=== PATIENT | female | born 1945 | race Caucasian/White ===

== ENCOUNTER 2018-05-22 11:52 | Emergency (ER) | payer MEDICARE, OTHER, SELFPAY ==
[2018-05-22 11:53] VITALS: BP 166/95; PULSE 85; RESP 16; TEMP 36.6; O2SAT 98; BMI 32.1
--- NOTE | 2018-05-22 12:20 | ED.VISSUMM ---
- ER Visit Summary Date of Service: 05/22/18 Chief Complaint: Abdominal pain History of Present Illness: The patient is a 73 F with a 3-week history of intermittent lower abdominal cramping and diarrhea. She denies fever. She has not been on antibiotics recently. She has no urinary symptoms. Patient states her last colonoscopy was 3 years ago and showed diverticulosis. Physical Examination: Vital signs significant for blood pressure 166/95. Patient sitting upright in bed no acute distress. Head and neck examination normal. Heart is regular rate and rhythm. Lung sounds clear. Abdomen is soft with mild lower abdominal tenderness. No guarding or rebound. Hyperactive bowel sounds are noted. Test Results: CBC and chemistry studies significant only for potassium of 3.4. LFTs normal. Urinalysis normal. CT abdomen pelvis with contrast shows no acute process. Diverticulosis is noted. Emergency Department Course and Treatment: Patient was given IV fluids here. Test results are discussed with patient and at bedside. Patient will be given Bentyl to help with spasm. She may take Imodium as needed for diarrhea. Treatment Plan: [] Disposition: Discharge Impression: Diarrhea with abdominal cramping This note was generated with [employer] dictation software. It may contain incorrect words, spelling, and punctuation that were not noted in review of the chart prior to signing ED Disposition - Plan for ED Patient: Referrals: Dell Mcmahon MD [Primary Care Provider] -
[2018-05-22] MEDS: 0.9% Normal Saline 1,000 ML 150 ML IV (12:56)
[2018-05-22 13:09] LABS: Mucous, Urine 0 SEEN /hpf (<or=2+); Red Blood Cells-Urine 0 SEEN /hpf (0-5); Squamous Epithelial Cells - UA 0 SEEN /hpf (5-10)
[2018-05-22 13:11] LABS: Absolute Lymphocyte Count 1.98 X10^3/ul (0.83-4.51); Absolute Neutrophil Count 5.1 X10^3/uL (2.0-7.7); Basophil# 0.01 X10^3/uL; Basophil% 0.1 % (0-1); Eosinophil# 0.14 X10^3/uL; Eosinophils% 1.8 % (0-5); Hemoglobin 13.7 g/dl (12.0-15.0); Lymphocyte # 1.98 X10^3/ul (4.0); Lymphocyte % 25.6 % (19-41); Mean Corp Hgb Conc 33.4 g/gl (32-36); Mean Corpuscular Hgb 31.2 pg (27.0-32.0); Mean Corpuscular Volume 93.4 fL (81-99); Monocyte# 0.48 X10^3/uL; Monocyte% 6.2 % (0-10); Neutrophil # 5.08 X10^3/uL (2.7-7.7); Neutrophil % 65.9 % (47-70); Platelet Count 262 K/mm3 (150-450); RBC Distribution Width CV 12.6 % (11.6-14.6); RBC Distribution Width SD 42.7 fl (35.1-43.9); Red Blood Count 4.39 M/mm3 (4.2-5.4); White Blood Count 7.7 K/mm3 (4.4-11.0)
[2018-05-22 13:13] LABS: POSITIVE COUNT NO; POSITIVE DIFFERENTIAL NO; POSITIVE MORPHOLOGY NO
[2018-05-22 13:24] LABS: Bacteria RARE /hpf (None Seen); Color, Urine Yellow (Yellow); Glucose, Dipstick Normal (Normal); Ketone-Dipstick Negative (Negative); Leukocyte Esterase-Dipstick 25 /ul (Negative); Nitrite-Dipstick Negative (Negative); Occult Blood-Urine Negative /ul (Negative); Protein-Dipstick Negative (Negative); Urine Bilirubin Dipstick Negative (Negative); Urine Clarity Clear (Clear); Urine Urobilinogen Normal (Normal); White Blood Cells 0-5 SEEN /hpf (0-5)
[2018-05-22 13:38] LABS: AST(SGOT) 26 U/L (15-37); Alanine Aminotransfer ALT/SGPT 33 U/L (13-56); Albumin, Serum 3.5 g/dL (3.2-5.0); Alkaline Phosphatase 98 U/L (45-117); Anion Gap 4 (5-15); BUN 17 mg/dL (7-18); Bilirubin, Direct 0.07 mg/dL (0.00-0.30); Calcium,Total 8.5 mg/dL (8.5-10.1); Chloride 105 mmol/L (98-107); Creatinine, Serum 0.85 mg/dL (0.55-1.02); EST Glomerular Filtration Rate 70 mL/min (>60); Est Glom Filt Rate - Afr Amer 85 mL/min (>60); Estimated Creatinine Clearance 54.62 ml/min; Globulin 3.6 g/dL (2.2-4.2); Glucose 107 mg/dL (74-106); Potassium 3.4 mmol/L (3.5-5.1); Protein, Total 7.1 g/dL (6.4-8.2); Sodium Level 138 mmol/L (136-145)
--- NOTE | 2018-05-22 14:30 | CT_ITS ---
STUDY: CT ABDOMEN AND PELVIS WITH CONTRAST REASON FOR EXAM: Female, 73 years old. Abdominal pain for 3 weeks RADIATION DOSAGE (If Supplied By Facility): CTDIvol = ( 16.57 ) mGy, DLP = ( 1296.18 ) mGycm TECHNIQUE: Transaxial images were obtained from the dome of the diaphragm to the symphysis pubis with oral contrast. 100ml IV/Oral Isovue 300 was administered. Sagittal and coronal images were reconstructed. Individualized dose optimization techniques were used for this CT. COMPARISON: None. FINDINGS: The visualized lung bases are unremarkable. The visualized portions of the heart are within normal limits. Subcentimeter low-density lesion of the right lobe likely represents a simple cyst. No solid hepatic masses are seen. Normal gallbladder and extrahepatic biliary system. Normal spleen. Normal pancreas. Normal bilateral adrenal glands. Normal right kidney. Normal left kidney. Normal visualized stomach. Normal small intestine. There are multiple colonic diverticula consistent with diverticulosis. The appendix is visualized and appears normal. There is diffuse atherosclerotic calcification of the abdominal aorta, without a demonstrated aneurysm. Normal inferior vena cava. Normal retroperitoneum. Normal urinary bladder. Normal abdominal wall. There are diffuse degenerative changes of the visualized lumbar spine. CT/Abdomen/Pelvis WITH Contrast IMPRESSION: 1. No acute inflammatory process or bowel obstruction. 2. Diverticulosis without evidence of diverticulitis. Electronically Signed: Saravanan Cox MD at 15:31 EDT , Service support ,
--- NOTE | 2018-05-22 15:43 | ED.DEP ---
ED Disposition - Plan for ED Patient: Disposition: Home or Assisted Living Instructions: ED Abdominal Pain Unkn Cause Prescriptions: Dicyclomine HCl [Bentyl] 20 mg PO TIDAC #20 capsule Referrals: Dell Mcmahon MD [Primary Care Provider] - 1 Week
[2018-05-22 16:10] VITALS: BP 141/75; PULSE 66; RESP 15; O2SAT 96
== END 2018-05-22 16:12 | disposition home or self-care (01) ==
PROVIDERS: Emergency Provider Emergency Medicine; Family Provider Family Medicine; PCP Family Medicine
DX: R10.30 Lower abdominal pain, unspecified (principal); R19.7 Diarrhea, unspecified; I10 Essential (primary) hypertension; L40.9 Psoriasis, unspecified
CPT/HCPCS: 74177; 80048; 80076; 81001; 85025; 96360; 96361; 99283; J7030; Q9967; A4216

== ENCOUNTER 2019-06-27 19:38 | Inpatient (IN) | payer MEDICARE, OTHER, SELFPAY ==
[2019-06-27 19:39] VITALS: BP 130/76; PULSE 129; RESP 18; TEMP 37.1; O2SAT 96; BMI 29.9
--- NOTE | 2019-06-27 19:51 | EKG12_ITS ---
Test Reason : DYSRYTHMIA Blood Pressure : / mmHG Vent. Rate : 114 BPM Atrial Rate : 114 BPM P-R Int : 160 ms QRS Dur : 094 ms QT Int : 328 ms P-R-T Axes : 023 -10 039 degrees QTc Int : 452 ms Sinus tachycardia Nonspecific ST and T wave abnormality Abnormal ECG Confirmed by MOLINA LUND ([id number]), editor department RENETTA KAMARA ([id number]) on 06/30/2019 3:07:33 PM Referred By: Peter Pedraza Confirmed By:MOLINA LUND
--- NOTE | 2019-06-27 19:51 | CT_ITS ---
STUDY: CT ABDOMEN AND PELVIS WITH CONTRAST REASON FOR EXAM: Female, 74 years old. UPPER ABD PAIN X FEW DAYS WITH FEVER, COUGH, N/V/D, CHILLS, TX FOR UTI CURRENTLY RADIATION DOSAGE (If Supplied By Facility): CTDIvol = ( 15.88 ) mGy, DLP = ( 1178.09 ) mGycm TECHNIQUE: Transaxial images were obtained from the dome of the diaphragm to the symphysis pubis without oral contrast. 100ML ISOVUE 370 was administered. Sagittal and coronal images were reconstructed. Individualized dose optimization techniques were used for this CT. COMPARISON: CT abdomen and pelvis 05/[birth year]/1989. FINDINGS: There are new trace bilateral pleural effusions. There are mild groundglass pulmonary opacities right middle lobe lingula and lower lobes. There is a new small pericardial effusion. There is stable 3 mm hypodensity likely cyst within the right lobe of liver. There is a small stable hiatal hernia. Normal gallbladder and extrahepatic biliary system. Normal spleen. Normal pancreas. Normal bilateral adrenal glands. Normal right kidney. Normal left kidney. Normal visualized stomach. Normal small intestine. There are scattered colonic diverticula. No CT evidence for acute diverticulitis. The appendix is visualized and appears normal. Normal abdominal aorta. Normal inferior vena cava. There are enlarging small subcentimeter periaortic lymph nodes. Normal urinary bladder. Normal abdominal wall. There are stable significant dystrophic changes at L2-L3. There is disc space narrowing, subchondral sclerosis and osteophyte formation. There is stable small posterior calcified disc protrusion at L5-S1. CT/Abdomen/Pelvis W IV Cont ONLY IMPRESSION: New trace bilateral pleural effusions, new mild groundglass pulmonary opacities, hypoventilatory changes versus infectious alveolitis, atypical viral pneumonia cannot be excluded New small pericardial effusion Stable 3 mm hypodensity right lobe liver too small to characterize likely cyst Small stable hiatal hernia Stable significant dystrophic changes L2-L3 Stable small posterior disc calcified protrusion at L5-S1 Colonic diverticulosis without diverticulitis Mild enlarging subcentimeter periaortic lymph nodes are likely reactive, cannot exclude pathologic adenopathy Electronically Signed: Min Andrade, at 21:57 EDT Tel , Service support ,
[2019-06-27 20:09] VITALS: BP 136/67; PULSE 119; RESP 29; O2SAT 95
[2019-06-27 20:19] LABS: Bacteria 0 SEEN /hpf (None Seen); Color, Urine Yellow (Yellow); Glucose, Dipstick Normal (Normal); Ketone-Dipstick 5 mg/dl (Negative); Leukocyte Esterase-Dipstick 100 /ul (Negative); Mucous, Urine 0 SEEN /hpf (<or=2+); Nitrite-Dipstick Negative (Negative); Occult Blood-Urine 25 /ul (Negative); Protein-Dipstick 30 mg/dl (Negative); Urine Bilirubin Dipstick Negative (Negative); Urine Clarity Sl. Cloudy (Clear); Urine Urobilinogen 1 mg/dl (Normal); Urine pH 6.5 (5.0 - 8.0)
[2019-06-27 20:22] LABS: Absolute Lymphocyte Count 0.21 X10^3/uL (0.83-4.51); Absolute Neutrophil Count 18.4 X10^3/uL (2.0-7.7); Basophil# 0.03 X10^3/uL; Basophil% 0.2 % (0-1); Differential Indicated SCAN CRITERIA MET; Eosinophil# 0.02 X10^3/uL; Eosinophils% 0.1 % (0-5); Hematocrit 42.1 % (37-47); Hemoglobin 14.1 g/dL (12.0-15.0); Lymphocyte # 0.21 X10^3/ul (4.0); Lymphocyte % 1.1 % (19-41); Mean Corp Hgb Conc 33.5 g/dL (32-36); Mean Corpuscular Hgb 30.8 pg (27.0-32.0); Mean Corpuscular Volume 91.9 fL (81-99); Mean Platelet Vol. 9.2 fl (6.2-12.0); Monocyte# 0.56 X10^3/uL; Monocyte% 2.9 % (0-10); NRBC Flagged by Analyzer 0 % (0-5); Neutrophil # 18.37 X10^3/uL (2.7-7.7); Neutrophil % 95.1 % (47-70); POSITIVE DIFFERENTIAL YES; Platelet Count 228 K/mm3 (150-450); RBC Distribution Width CV 12.6 % (11.6-14.6); RBC Distribution Width SD 42.6 fl (35.1-43.9); Red Blood Count 4.58 M/mm3 (4.2-5.4); White Blood Count 19.3 K/mm3 (4.4-11.0)
[2019-06-27] MEDS: Ondansetron 4 MG/2 ML Vial IV (20:28)
[2019-06-27] MEDS: 0.9% Normal Saline 1,000 ML 1000 ML IV (20:28)
[2019-06-27] MEDS: Morphine 2 MG/ML Syringe IV (20:28)
[2019-06-27 20:35] LABS: Red Blood Cells-Urine 0-5 SEEN /hpf (0-5); Squamous Epithelial Cells - UA 0-5 SEEN /hpf (5-10); White Blood Cells 10-25 SEEN /hpf (0-5)
[2019-06-27 20:36] LABS: Amorphous Sediment 1+ URATE
[2019-06-27 20:40] LABS: ALB/GLOB Ratio 0.9 RATIO (0.9-2.4); AST(SGOT) 63 U/L (15-37); Alanine Aminotransfer ALT/SGPT 87 U/L (13-56); Albumin, Serum 3.6 g/dL (3.2-5.0); Alkaline Phosphatase 134 U/L (45-117); Anion Gap 9 (5-15); BUN 14 mg/dL (7-18); BUN/Creat Ratio 12.5 RATIO (10-20); Calcium,Total 9.1 mg/dL (8.5-10.1); Chloride 99 mmol/L (98-107); Creatinine, Serum 1.12 mg/dL (0.55-1.02); EST Glomerular Filtration Rate 51 mL/min (>60); Est Glom Filt Rate - Afr Amer 61 mL/min (>60); Estimated Creatinine Clearance 40.86 ml/min; Glucose 214 mg/dL (74-106); Lipase 32 U/L (73-393); Potassium 3.1 mmol/L (3.5-5.1); Protein, Total 7.6 g/dL (6.4-8.2); Sodium Level 134 mmol/L (136-145)
[2019-06-27 20:46] LABS: Differential Comment SCANNED
[2019-06-27 20:49] VITALS: BP 122/71; PULSE 114; RESP 19; TEMP 37; O2SAT 94
[2019-06-27] MEDS: 0.9% Normal Saline 1,000 ML 999 ML IV (20:55)
--- NOTE | 2019-06-27 20:55 | RAD_ITS ---
STUDY: X-RAY CHEST REASON FOR EXAM: Female, 74 years old. NAUSEA VOMITING AND DIARRHEA X 1 WEEK, TECHNIQUE: Portable chest COMPARISON: None. FINDINGS: There are mild bilateral likely groundglass pulmonary infiltrates. There is no demonstrated pleural abnormality. Normal size heart. Normal mediastinum and michael. Normal visualized pulmonary arteries. Normal visualized aortic arch and descending thoracic aorta. Normal visualized thoracic spine. Normal visualized ribs, clavicles, and shoulders. There is no demonstrated abnormality of the visualized soft tissue structures of the upper abdomen. RAD/Chest 1 View (Portable) IMPRESSION: Bilateral likely groundglass pulmonary infiltrates, atypical viral pneumonia cannot be excluded. Electronically Signed: Min Andrade, at 21:30 EDT Tel , Service support ,
[2019-06-27 21:52] LABS: Lactic Acid 2.4 mmol/L (0.4-1.9)
[2019-06-27 22:00] VITALS: BP 120/85; PULSE 95; RESP 19; TEMP 37.3; O2SAT 99
--- NOTE | 2019-06-27 22:01 | ED.VISSUMM ---
- ER Visit Summary Date of Service: 06/27/19 Chief Complaint: Nausea, vomiting, diarrhea History of Present Illness: The patient is a 74 F with nausea, vomiting, diarrhea for the past 6 days. She is also having some right upper quadrant pain. She had a cough that started over the last few days with a low-grade fever. She has no known coronavirus exposure. History of hypertension and psoriasis. Non-smoker. She is currently being treated for a UTI. This is her last day of antibiotics. Physical Examination: Tachycardic. Afebrile and otherwise vitals unremarkable. Lungs clear. Heart regular. Skin unremarkable. Right upper quadrant tender to palpation. She has a blanching erythematous rash to her bilateral ankles. Neurovascularly intact. Calves soft and supple. Skin intact. Test Results: EKG showed sinus rhythm at a rate of [address] and T wave changes. Chest x-ray showed bilateral groundglass infiltrates. CT abdomen showed trace bilateral pleural effusions with small pericardial effusion, stable and chronic changes, and periaortic adenopathy. White count 19.3, lactate 2.4. Sodium 134, potassium 3.1, glucose 214, creatinine 1.12, alkaline phosphatase 134, ALT 87, AST 63, lipase normal. Urinalysis shows signs of infection. Urine and blood cultures are pending. Troponin is normal. COVID testing is pending. Emergency Department Course and Treatment: Patient was placed on a monitor. Had COVID precautions. She was treated with IV fluids, morphine, Zofran. Work-up as above is concerning for bilateral pneumonia, COVID suspected. She also has UTI and severe sepsis. She was treated with Levaquin and vancomycin. She has a penicillin allergy. She will need inpatient care and the hospitalist was contacted. Treatment Plan: As above Disposition: Admission Impression: Bilateral pneumonia UTI COVID suspected Severe sepsis This note was generated with [employer] dictation software. It may contain incorrect words, spelling, and punctuation that were not noted in review of the chart prior to signing ED Disposition - Plan for ED Patient: Referrals: Dell Mcmahon MD [Primary Care Provider] -
[2019-06-27] MEDS: levoFLOXacin IV 750 MG/150 ML BAG 100 MG IV (22:11)
--- NOTE | 2019-06-27 22:59 | PCM.HP.STD ---
Problem List (1) Fever and chills Status: Acute (2) Diarrhea Status: Acute Qualifiers: Diarrhea type: unspecified type Qualified Code(s): R19.7 - Diarrhea, unspecified (3) Abdominal cramping Status: Acute History of Present Illness Date of Admission: 06/27/19 Chief Complaint: Fever and chills, abdominal cramps, diarrhea The patient is a 74 year old F was seen in the emergency room at [facility] with a chief complaint of fever and chills, abdominal cramping, and diarrhea x24 hours. Patient is under treatment for a urinary tract infection and is on Macrodantin. Patient denies any cough, she denies any shortness of breath. Labs obtained in the emergency room showed an elevated white blood cell count of 19.3, lactic acid was elevated at 2.4, creatinine was 1.12, potassium was 3.1, and alkaline phosphatase is 134. Patient had 10-25 white blood cells in her urine, chest x-ray showed bilateral infiltrates suggestive of a viral pneumonia with groundglass appearance. Patient will be admitted to [facility] floor severe sepsis secondary to bilateral pneumonia, she had a coronavirus test performed in the emergency room that she would be a rule out. Patient was given vancomycin and Levaquin in the emergency room. Past Medical History Past Medical History (Chronic Problems): Chronic Problems (Last Updated 04/15/17 @ 12:[address] Theresa Kahn MD) Psoriasis (Chronic) failed clobetasol on vulva- ordered calcipotriene Medical History: Medical History (Last Updated 04/15/17 @ 12:[address] 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 Denies: Anorexia, Night Sweats, Weakness, Weight Change Eyes: Denies: Cataracts, Conjunctivae Inflammation, Double vision, Drainage HEENT: Denies: Difficulty Swallowing, Dysphasia, Ear Pain, Eye Pain, Hearing Changes, Nasal bleeding, Nasal Congestion, Post Nasal Drip Cardiovascular: Denies: Chest Pain, Claudication, Chest Pressure, Chest Tightness, Edema, Palpitations Respiratory: Denies: Cough, Hemoptysis, Pleuritic Pain, Shortness of Breath, Shortness of breath at rest, Shortness of breath upon exertion, Sputum production, Wheezing Gastrointestinal: Reports: Abdominal Pain, Diarrhea. Denies: Constipation, Hematemesis, Hematochezia, Nausea, Melena, Vomiting Genitourinary: Denies: Dysuria, Frequency, Hematuria, Hesitancy, Urgency Gynecological: Denies: Breast symptoms Musculoskeletal: Denies: Foot Pain, Hand Pain, Joint Pain, Joint stiffness, Joint swelling, Joint Tenderness, Leg Pain Skin: Denies: Dryness, Jaundice, Pruritis, Rash Neurological: Denies: Blurred vision, Double vision, Change in Speech, Slurred speech, Difficulty swallowing, Focal weakness, Headaches, Incoordination, Numbness, Tingling Psychiatric: Denies: Anxiety, Depression, Homicidal Ideations, Suicidal Ideations Endocrine: Denies: Change in Body Habitus, Heat/ Cold Intolerance, Polydipsia, Polyuria, Hx of Irradiation Hematologic/ Lymphatic: Denies: Adenopathy, Anemia, Easy Bruising, Easy Bleeding, Petechiae, Purpura VTE Information - Inpt Only VTE Present on Admission: No VTE Mechan Device Prophylaxis: None VTE Pharm Prophylaxis ordered?: Yes Patient Problems: Active and Suspected Problems (Last Updated 04/15/17 @ 12:[address] Theresa Kahn MD) Fever and chills (Acute) Diarrhea (Acute) Abdominal cramping (Acute) - Physical Exam Vitals/I&O's: Vital Signs Temp Pulse Resp BP Pulse Ox 99.1 F 95 19 H 120/85 H 99 06/27/19 22:00 06/27/19 22:00 06/27/19 22:00 06/27/19 22:00 06/27/19 22:00 Oxygen Delivery Method Room Air Weight: 81.647 kg Body Mass Index (BMI) 29.9 Intake and Output for Last 24 Hours 06/25/19 06/26/19 06/27/19 23:59 23:59 23:59 Intake Total 2216.45 / 2216.45 Balance 2216.45 / 2216.45 General: Alert, Oriented x3, Cooperative, No apparent distress, Well developed, Well nourished HEENT: Atraumatic, PERRLA, EOMI, Normocephalic Oral: Moist Mucosa Neck: Supple, No JVD, Negative Carotid Bruits, Trachea Midline, Thyroid Normal Size and Texture Lungs: Clear to auscultation, Normal air movement, No rhonchi, No wheeze, No rales Cardiovascular: Regular rate, Regular Rhythm, Normal S1, Normal S2, No murmurs, PMI Normal, No rub noted Abdomen: Bowel Sounds Present, Soft, Non Tender, Non-Distended Extremities: No clubbing, No cyanosis, No edema, Capillary Refill Less than 3 Seconds Skin: No rashes, No breakdown Musculoskeletal: No Tenderness to Palpation of Joints or Extremities Neurological: Cranial nerves II-XII grossly intact, Neuro grossly intact, Sensory exam intact to light touch and pain Psych/Mental Status: Normal Affect, Appropriate, Alert and oriented to time, place, person, mood and affect Laboratory Results 06/27/19 19:55: WBC 19.3 H, RBC 4.58, Hgb 14.1, Hct 42.1, MCV 91.9, MCH 30.8, MCHC 33.5, RDW Std Deviation 42.6, RDW Coeff of Tami 12.6, Plt Count 228, MPV 9.2, Immature Gran % (Auto) 0.600, Neut % (Auto) 95.1 H, Lymph % (Auto) 1.1 L, [place] % (Auto) 2.9, Eos % (Auto) 0.1, Baso % (Auto) 0.2, Absolute Neuts (auto) 18.4 H, Absolute Lymphs (auto) 0.21 L, Nucleated RBC % 0, Differential Comment SCANNED 06/27/19 19:55: Sodium 134 L, Potassium 3.1 L, Chloride 99, Carbon Dioxide 26.0, Anion Gap 9, BUN 14, Creatinine 1.12 H, Estim Creat Clear Calc 40.86, Est GFR (MDRD) Af Amer 61, Est GFR (MDRD) Non-Af 51 L, BUN/Creatinine Ratio 12.5, Glucose 214 H, Calcium 9.1, Total Bilirubin 0.60, AST 63 H, ALT 87 H, Alkaline Phosphatase 134 H, Troponin I < 0.015, Total Protein 7.6, Albumin 3.6, Globulin 4.0, Albumin/Globulin Ratio 0.9, Lipase 32 L 06/27/19 19:55: Lactic Acid 2.4 H* 06/27/19 20:00: Urine Color Yellow, Urine Clarity Sl. Cloudy, Urine pH 6.5, Ur Specific [place] 1.010, Urine Protein 30 H, Urine Glucose (UA) Normal, Urine Ketones 5 H, Urine Occult Blood 25 H, Urine Nitrite Negative, Urine Bilirubin Negative, Urine Urobilinogen 1 H, Ur Leukocyte Esterase 100 H, Urine RBC 0-5 SEEN, Urine WBC 10-25 SEEN, Ur Squamous Epith Cells 0-5 SEEN, Amorphous Sediment 1+ URATE, Urine Bacteria 0 SEEN, Urine Mucus 0 SEEN 06/27/19 21:25: COVID-19 (TREVOR) Pending Current Medications Levofloxacin (Levaquin Iv) 750 mg in 150 mls @ 100 mls/hr IV X1 ONE Stop: 06/27/19 23:18 Last Admin: 06/27/19 22:11 Dose: 100 mls/hr Documented by: Vancomycin HCl 1,250 mg/ (Sodium Chloride) 275 mls @ 167 mls/hr IV X1 ONE Stop: 06/28/19 00:08 Assessment/Plan All Active Problems (Last Updated 04/15/17 @ 12:[address] Theresa Kahn MD) Fever and chills (Acute) Diarrhea (Acute) Abdominal cramping (Acute) #1 severe sepsis secondary to bilateral pneumonia-etiology unclear, rule out coronavirus infection-patient will be admitted to [place] [id number] and [facility], she received vancomycin and Levaquin in the emergency room, I will maintain her on Levaquin on the floor, urine for Legionella and strep pneumoniae will be obtained, respiratory panel was ordered, coronavirus test was obtained in the emergency room. Blood cultures were obtained in the emergency room. #2 bilateral pneumonia-etiology unclear #3 hypokalemia-patient will be given oral potassium-she takes hydrochlorothiazide at home for blood pressure #4 pyuria-etiology unclear #5 abdominal cramping with diarrhea-etiology unclear, possible viral gastroenteritis or sequelae from coronavirus-enteric stool panel will be ordered #6 hypertension-patient is on hydrochlorothiazide Inpatient E&M: [id number] Init Hosp L3
[2019-06-27 23:00] VITALS: BP 127/71; PULSE 91; RESP 22; TEMP 37.3; O2SAT 96
[2019-06-27 23:06] VITALS: BP 127/71; PULSE 91; RESP 22; TEMP 37.3; O2SAT 96
[2019-06-27 23:42] VITALS: BMI 32.8
[2019-06-28 00:02] VITALS: BMI 32.9
[2019-06-28 00:19] VITALS: BP 132/74; PULSE 82; RESP 20; TEMP 37.2; O2SAT 97
[2019-06-28] MEDS: 0.9% Normal Saline 1,000 ML 100 ML IV ×2 (00:28→09:18)
[2019-06-28 00:53] VITALS: PULSE 82; RESP 20; O2SAT 97
[2019-06-28 01:03] LABS: Reflex Lactate? Y
[2019-06-28 01:54] LABS: Lactic Acid 1.6 mmol/L (0.4-1.9)
[2019-06-28 06:05] VITALS: BP 136/85; PULSE 76; RESP 18; TEMP 36.6; O2SAT 96
[2019-06-28] MEDS: Acetaminophen 325 MG Tablet 650 MG PO ×2 (06:20→21:24)
[2019-06-28 07:37] LABS: Absolute Lymphocyte Count 0.43 X10^3/uL (0.83-4.51); Absolute Neutrophil Count 10.2 X10^3/uL (2.0-7.7); Basophil# 0.02 X10^3/uL; Basophil% 0.2 % (0-1); Eosinophils% 2.6 % (0-5); Hematocrit 36.9 % (37-47); Lymphocyte # 0.43 X10^3/ul (4.0); Lymphocyte % 3.7 % (19-41); Mean Corp Hgb Conc 32.5 g/dL (32-36); Mean Corpuscular Hgb 30.6 pg (27.0-32.0); Mean Corpuscular Volume 94.1 fL (81-99); Mean Platelet Vol. 8.8 fl (6.2-12.0); Monocyte# 0.57 X10^3/uL; Monocyte% 4.9 % (0-10); NRBC Flagged by Analyzer 0 % (0-5); Neutrophil # 10.22 X10^3/uL (2.7-7.7); POSITIVE DIFFERENTIAL YES; Platelet Count 210 K/mm3 (150-450); RBC Distribution Width CV 12.8 % (11.6-14.6); Red Blood Count 3.92 M/mm3 (4.2-5.4); White Blood Count 11.6 K/mm3 (4.4-11.0)
[2019-06-28 08:00] LABS: Anion Gap 6 (5-15); BUN 10 mg/dL (7-18); BUN/Creat Ratio 11.9 RATIO (10-20); Calcium,Total 8.2 mg/dL (8.5-10.1); Chloride 106 mmol/L (98-107); Creatinine, Serum 0.84 mg/dL (0.55-1.02); EST Glomerular Filtration Rate 71 mL/min (>60); Est Glom Filt Rate - Afr Amer 86 mL/min (>60); Estimated Creatinine Clearance 52.28 ml/min; Glucose 112 mg/dL (74-106); Potassium 3.3 mmol/L (3.5-5.1); Sodium Level 138 mmol/L (136-145)
[2019-06-28 08:05] LABS: Differential Indicated SCAN CRITERIA MET
[2019-06-28 08:44] LABS: Differential Comment SCANNED
[2019-06-28 09:15] VITALS: BP 119/56; PULSE 71; RESP 17; TEMP 36.3; O2SAT 95
[2019-06-28] MEDS: Enoxaparin 40 MG/0.4 ML Syringe SC (09:18)
[2019-06-28] MEDS: hydroCHLOROthiazide 25 MG Tablet PO (09:18)
--- NOTE | 2019-06-28 12:21 | CHAPLAIN ---
Type of Pastoral Visit _x__ Initial Visit ___ Follow-up Visit ___ On-call Visit ___ General Patient Visit ___ Spiritual Assessment ___ Family Conference ___ Bereavement ___ Rapid Response ___ Code Blue ___ Other (describe below) Pastoral Care Referral From _x__ Patient ___ Family ___ Nurse ___ Physician ___ Negative Turner ___ Concrete Mixing Plant Superintendent ___ Other (describe below) Sacrament/Intervention _x__ Active listening ___ Anointing ___ Jainism ___ Bereavement ___ Communion ___ Olive exploration ___ ___ Life review ___ Prayer ___ Reconciliation ___ Sacrament of Sick ___ Supportive presence ___ Wedding ___ Other (describe below) Pastoral Comments phone call made to room of patient to offer support; pt answers the phone and states that she is starting to feel better; pt says that being from family at this time is probably harder on my ; pt will be doing Facetime with family later today; pt has a protestant connection and receivable manager is aware of her admission; no other needs at this time
--- NOTE | 2019-06-28 13:16 | CASEMGMT ---
RN CM Assessment Note Presentation: severe sepsis secondary to bilateral pneumonia. COVID-19 testing pending. Intro role of CM and purpose of RN CM assessment to patient via phone in room. Demographics, PCP and Pharmacy verified. Pt states she is independent, no care needs. Plans to return home on dc. PCP: Dr. Mcmahon Specialists: none Preferred Pharmacy: [facility] Pharmacy Insurance: [facility] Prescription Benefit: yes LNOK : Jamey Castelan Living Arrangements: Lives independently with her . No care needs per patient. Transportation: drives DME: none HHC: none Patient DC goals: DC PLAN: Home. RN CM advised to contact cm for any concerns/needs that may arise. RN CM will continue to follow and if COVID + will speak again with pt regarding needs at home for isolation.
--- NOTE | 2019-06-28 13:33 | PCM.PN.HOSP ---
Patient Problems: Active and Suspected Problems (Last Updated 04/15/17 @ 12:[address] Theresa Kahn MD) Fever and chills (Acute) Diarrhea (Acute) Abdominal cramping (Acute) Reason for Visit: Possible gastroenteritis secondary to antibiotic use Objective: Patient is admitted with nausea, vomiting, abdominal cramps and bilateral anterior, predominantly right lower chest pain. Denies shortness of breath or cough. Patient does not have history of smoking or chronic lung disease. Patient was taking nitrofurantoin for UTI. Does not have chronic inflammatory bowel disease or irritable bowel disease or GI disease. No GI bleed. No fever or chills. No hypoxia Diarrhea has resolved since she is admitted. Vitals/I&O's: Vital Signs Temp Pulse Resp BP Pulse Ox 97.3 F L 71 17 119/56 L 95 06/28/19 09:15 06/28/19 09:15 06/28/19 09:15 06/28/19 09:15 06/28/19 09:15 Oxygen Delivery Method Room Air Weight: 197 lb 5.019 oz Body Mass Index (BMI) 32.8 Intake and Output for Last 24 Hours 06/26/19 06/27/19 06/28/19 23:59 23:59 23:59 Intake Total 2650.00 / 2650.00 2118.33 / 2118.33 Output Total 1200 / 1200 Balance 2650.00 / 2650.00 918.33 / 918.33 General: Alert, Oriented x3, Cooperative HEENT: Atraumatic, PERRLA, EOMI, Normocephalic Neck: Supple, No JVD, Negative Carotid Bruits Lungs: Clear to auscultation, No rhonchi, No wheeze, No rales, Diminished Cardiovascular: Regular rate, Regular Rhythm, Normal S1, Normal S2, No murmurs Abdomen: Bowel Sounds Present, Soft, Non Tender - No tenderness over right upper quadrant along subcostal margin. Low suspicion for cholecystitis, Non-Distended, No Hepato-splenomegaly Extremities: No edema, Capillary Refill Less than 3 Seconds Skin: No rashes, No breakdown Musculoskeletal: No Tenderness to Palpation of Joints or Extremities, Arthritic Changes Neurological: Cranial nerves II-XII grossly intact Psych/Mental Status: Normal Affect, Appropriate Microbiology Past 72 Hours 06/27/19 23:54 Mucosa - Nasopharyngeal Respiratory Panel (PCR) - Final 06/27/19 23:30 Urine, Clean Catch Legionella Antigen - Final 06/27/19 23:30 Urine, Clean Catch Streptococcus pneumoniae Antigen (M - Final Laboratory Results 06/27/19 19:55: WBC 19.3 H, RBC 4.58, Hgb 14.1, Hct 42.1, MCV 91.9, MCH 30.8, MCHC 33.5, RDW Std Deviation 42.6, RDW Coeff of Tami 12.6, Plt Count 228, MPV 9.2, Immature Gran % (Auto) 0.600, Neut % (Auto) 95.1 H, Lymph % (Auto) 1.1 L, [place] % (Auto) 2.9, Eos % (Auto) 0.1, Baso % (Auto) 0.2, Absolute Neuts (auto) 18.4 H, Absolute Lymphs (auto) 0.21 L, Nucleated RBC % 0, Differential Comment SCANNED 06/27/19 19:55: Sodium 134 L, Potassium 3.1 L, Chloride 99, Carbon Dioxide 26.0, Anion Gap 9, BUN 14, Creatinine 1.12 H, Estim Creat Clear Calc 40.86, Est GFR (MDRD) Af Amer 61, Est GFR (MDRD) Non-Af 51 L, BUN/Creatinine Ratio 12.5, Glucose 214 H, Calcium 9.1, Total Bilirubin 0.60, AST 63 H, ALT 87 H, Alkaline Phosphatase 134 H, Troponin I < 0.015, Total Protein 7.6, Albumin 3.6, Globulin 4.0, Albumin/Globulin Ratio 0.9, Lipase 32 L 06/27/19 19:55: Lactic Acid 2.4 H* 06/27/19 20:00: Urine Color Yellow, Urine Clarity Sl. Cloudy, Urine pH 6.5, Ur Specific [place] 1.010, Urine Protein 30 H, Urine Glucose (UA) Normal, Urine Ketones 5 H, Urine Occult Blood 25 H, Urine Nitrite Negative, Urine Bilirubin Negative, Urine Urobilinogen 1 H, Ur Leukocyte Esterase 100 H, Urine RBC 0-5 SEEN, Urine WBC 10-25 SEEN, Ur Squamous Epith Cells 0-5 SEEN, Amorphous Sediment 1+ URATE, Urine Bacteria 0 SEEN, Urine Mucus 0 SEEN 06/27/19 21:25: COVID-19 (TREVOR) Pending 06/28/19 01:22: Lactic Acid 1.6 06/28/19 07:20: WBC 11.6 H, RBC 3.92 L, Hgb 12.0, Hct 36.9 L, MCV 94.1, MCH 30.6, MCHC 32.5, RDW Std Deviation 44.0 H, RDW Coeff of Tami 12.8, Plt Count 210, MPV 8.8, Immature Gran % (Auto) 0.600, Neut % (Auto) 88.0 H, Lymph % (Auto) 3.7 L, [place] % (Auto) 4.9, Eos % (Auto) 2.6, Baso % (Auto) 0.2, Absolute Neuts (auto) 10.2 H, Absolute Lymphs (auto) 0.43 L, Nucleated RBC % 0, Differential Comment SCANNED 06/28/19 07:20: Sodium 138, Potassium 3.3 L, Chloride 106, Carbon Dioxide 26.0, Anion Gap 6, BUN 10, Creatinine 0.84, Estim Creat Clear Calc 52.28, Est GFR (MDRD) Af Amer 86, Est GFR (MDRD) Non-Af 71, BUN/Creatinine Ratio 11.9, Glucose 112 H, Calcium 8.2 L Current Medications Acetaminophen (Tylenol) 650 mg PO Q6H PRN PRN PRN Reason: Pain Score 1-10/10 Last Admin: 06/28/19 06:20 Dose: 650 mg Documented by: Enoxaparin Sodium (Lovenox) 40 mg SC DAILY [facility] Last Admin: 06/28/19 09:18 Dose: 40 mg Documented by: Hydrochlorothiazide (Hctz) 25 mg PO QAM [facility] Last Admin: 06/28/19 09:18 Dose: 25 mg Documented by: Levofloxacin (Levaquin Iv) 750 mg in 150 mls @ 100 mls/hr IV Q48@2200 [facility] Sodium Chloride () 1,000 mls @ 100 mls/hr IV .Q10H [facility] Last Admin: 06/28/19 09:18 Dose: 100 mls/hr Documented by: Sodium Chloride () 250 mls @ 15 mls/hr IV .[id number] PRN PRN Reason: Saline Flush Sodium Chloride () 250 mls @ 15 mls/hr IV .[id number] PRN PRN Reason: Additional IVPB Infusion Morphine Sulfate () 2 mg IV Q3H PRN PRN PRN Reason: Pain Score 6-10/10 Ondansetron HCl (Zofran) 4 mg IV Q8H PRN PRN PRN Reason: NAUSEA/VOMITING Sodium Chloride () 10 - 40 ml IV UD PRN PRN Reason: SALINE FLUSH Medical Necessity - Tobacco Use Smoking Status: Never smoker Tobacco Use: Non-smoker Assessment/Plan All Active Problems (Last Updated 04/15/17 @ 12:[address] Theresa Kahn MD) Fever and chills (Acute) Diarrhea (Acute) Abdominal cramping (Acute) This 74-year-old female was admitted through ER for fever and chills, abdominal cramping/pain and diarrhea for 24 hours. She denied cough or shortness of breath. She is on Macrodantin for UTI. #1 severe sepsis secondary to bilateral pneumonia-etiology unclear, rule out coronavirus infection-patient will be admitted to [place] [id number] and isolation, she received vancomycin and Levaquin in the emergency room. Chest x-ray independently reviewed and shows bilateral lower lobes groundglass infiltrates. Respiratory panel is negative. Urinary antigens are negative. Blood cultures x2 are pending. Continue Levaquin. D-dimer elevated and therefore started therapeutic dose of Lovenox. Ferritin, CRP and LDH are also elevated. Discussed with ID. #2 GI symptoms probably antibiotic associated diarrhea or atypical manifestation of COVID-19: Stool for C. difficile, lactoferrin and occult blood ordered. Patient did not had bowel movement since admission. Predominantly right lower chest pain probably secondary to pneumonia: Clinically does not seem acute cholecystitis. Mildly elevated transaminases. Monitor LFT. #3 hypokalemia-K3.3, potassium replaced. #4 Possible cystitis/pyuria:-LE 100. WBC 10-25. Urine culture negative. #6 hypertension-patient is on hydrochlorothiazide DVT prophylaxis on therapeutic dose of Lovenox for elevated d-dimer. Clinical Impression(s) from Imaging Studies Abdomen/Pelvis CT 06/27/19 19:51 IMPRESSION: New trace bilateral pleural effusions, new mild groundglass pulmonary opacities, hypoventilatory changes versus infectious alveolitis, atypical viral pneumonia cannot be excluded New small pericardial effusion Stable 3 mm hypodensity right lobe liver too small to characterize likely cyst Small stable hiatal hernia Stable significant dystrophic changes L2-L3 Stable small posterior disc calcified protrusion at L5-S1 Colonic diverticulosis without diverticulitis Mild enlarging subcentimeter periaortic lymph nodes are likely reactive, cannot exclude pathologic adenopathy Chest X-Ray 06/27/19 20:55 IMPRESSION: Bilateral likely groundglass pulmonary infiltrates, atypical viral pneumonia cannot be excluded. Microbiology Past 72 Hours 06/27/19 23:54 Mucosa - Nasopharyngeal Respiratory Panel (PCR) - Final 06/27/19 23:30 Urine, Clean Catch Legionella Antigen - Final 06/27/19 23:30 Urine, Clean Catch Streptococcus pneumoniae Antigen (M - Final Laboratory Results 06/27/19 19:55: WBC 19.3 H, RBC 4.58, Hgb 14.1, Hct 42.1, MCV 91.9, MCH 30.8, MCHC 33.5, RDW Std Deviation 42.6, RDW Coeff of Tami 12.6, Plt Count 228, MPV 9.2, Immature Gran % (Auto) 0.600, Neut % (Auto) 95.1 H, Lymph % (Auto) 1.1 L, [place] % (Auto) 2.9, Eos % (Auto) 0.1, Baso % (Auto) 0.2, Absolute Neuts (auto) 18.4 H, Absolute Lymphs (auto) 0.21 L, Nucleated RBC % 0, Differential Comment SCANNED 06/27/19 19:55: Sodium 134 L, Potassium 3.1 L, Chloride 99, Carbon Dioxide 26.0, Anion Gap 9, BUN 14, Creatinine 1.12 H, Estim Creat Clear Calc 40.86, Est GFR (MDRD) Af Amer 61, Est GFR (MDRD) Non-Af 51 L, BUN/Creatinine Ratio 12.5, Glucose 214 H, Calcium 9.1, Total Bilirubin 0.60, AST 63 H, ALT 87 H, Alkaline Phosphatase 134 H, Troponin I < 0.015, Total Protein 7.6, Albumin 3.6, Globulin 4.0, Albumin/Globulin Ratio 0.9, Lipase 32 L 06/27/19 19:55: Lactic Acid 2.4 H* 06/27/19 20:00: Urine Color Yellow, Urine Clarity Sl. Cloudy, Urine pH 6.5, Ur Specific [place] 1.010, Urine Protein 30 H, Urine Glucose (UA) Normal, Urine Ketones 5 H, Urine Occult Blood 25 H, Urine Nitrite Negative, Urine Bilirubin Negative, Urine Urobilinogen 1 H, Ur Leukocyte Esterase 100 H, Urine RBC 0-5 SEEN, Urine WBC 10-25 SEEN, Ur Squamous Epith Cells 0-5 SEEN, Amorphous Sediment 1+ URATE, Urine Bacteria 0 SEEN, Urine Mucus 0 SEEN 06/27/19 21:25: COVID-19 (TREVOR) Pending 06/28/19 01:22: Lactic Acid 1.6 06/28/19 07:20: WBC 11.6 H, RBC 3.92 L, Hgb 12.0, Hct 36.9 L, MCV 94.1, MCH 30.6, MCHC 32.5, RDW Std Deviation 44.0 H, RDW Coeff of Tami 12.8, Plt Count 210, MPV 8.8, Immature Gran % (Auto) 0.600, Neut % (Auto) 88.0 H, Lymph % (Auto) 3.7 L, [place] % (Auto) 4.9, Eos % (Auto) 2.6, Baso % (Auto) 0.2, Absolute Neuts (auto) 10.2 H, Absolute Lymphs (auto) 0.43 L, Nucleated RBC % 0, Differential Comment SCANNED 06/28/19 07:20: Sodium 138, Potassium 3.3 L, Chloride 106, Carbon Dioxide 26.0, Anion Gap 6, BUN 10, Creatinine 0.84, Estim Creat Clear Calc 52.28, Est GFR (MDRD) Af Amer 86, Est GFR (MDRD) Non-Af 71, BUN/Creatinine Ratio 11.9, Glucose 112 H, Calcium 8.2 L Inpatient E&M: [id number] Subs Hosp L2
[2019-06-28 14:25] LABS: D-Dimer Quantitative (DVT/PE) 1.95 FEU/ug/m (0.27-0.49)
[2019-06-28 14:34] LABS: Ferritin 440 ng/mL (8-252); LDH 342 U/L (84-246); Magnesium 1.8 mg/dL (1.6-2.6)
[2019-06-28 15:10] VITALS: BP 135/64; PULSE 64; RESP 18; TEMP 36.4; O2SAT 95
[2019-06-28] MEDS: Enoxaparin 60 MG/0.6 ML Syringe 50 MG SC (15:13)
[2019-06-28 21:08] VITALS: BP 143/81; PULSE 65; RESP 16; TEMP 37.3; O2SAT 97
[2019-06-28] MEDS: Enoxaparin 100 MG/ML Syringe 90 MG SC (21:24)
[2019-06-29 03:08] VITALS: BP 136/71; PULSE 75; RESP 18; TEMP 36.6; O2SAT 96
[2019-06-29 06:46] LABS: Absolute Lymphocyte Count 1.36 X10^3/uL (0.83-4.51); Absolute Neutrophil Count 3.4 X10^3/uL (2.0-7.7); Basophil# 0.02 X10^3/uL; Basophil% 0.3 % (0-1); Eosinophil# 0.42 X10^3/uL; Eosinophils% 7.3 % (0-5); Hematocrit 38.9 % (37-47); Hemoglobin 12.6 g/dL (12.0-15.0); Lymphocyte # 1.36 X10^3/ul (4.0); Lymphocyte % 23.7 % (19-41); Mean Corp Hgb Conc 32.4 g/dL (32-36); Mean Corpuscular Hgb 30.4 pg (27.0-32.0); Mean Corpuscular Volume 93.7 fL (81-99); Monocyte# 0.47 X10^3/uL; Monocyte% 8.2 % (0-10); NRBC Flagged by Analyzer 0 % (0-5); Neutrophil # 3.44 X10^3/uL (2.7-7.7); Platelet Count 205 K/mm3 (150-450); RBC Distribution Width CV 12.9 % (11.6-14.6); RBC Distribution Width SD 44.3 fl (35.1-43.9); Red Blood Count 4.15 M/mm3 (4.2-5.4); White Blood Count 5.7 K/mm3 (4.4-11.0)
[2019-06-29 06:58] LABS: ALB/GLOB Ratio 0.8 RATIO (0.9-2.4); AST(SGOT) 110 U/L (15-37); Alanine Aminotransfer ALT/SGPT 200 U/L (13-56); Albumin, Serum 3.1 g/dL (3.2-5.0); Alkaline Phosphatase 157 U/L (45-117); Anion Gap 6 (5-15); BUN 11 mg/dL (7-18); BUN/Creat Ratio 12.1 RATIO (10-20); Calcium,Total 9.3 mg/dL (8.5-10.1); Chloride 105 mmol/L (98-107); Creatinine, Serum 0.91 mg/dL (0.55-1.02); EST Glomerular Filtration Rate 64 mL/min (>60); Est Glom Filt Rate - Afr Amer 78 mL/min (>60); Estimated Creatinine Clearance 48.25 ml/min; Globulin 4.1 g/dL (2.2-4.2); Glucose 102 mg/dL (74-106); Potassium 3.9 mmol/L (3.5-5.1); Protein, Total 7.2 g/dL (6.4-8.2); Sodium Level 139 mmol/L (136-145)
[2019-06-29 08:05] VITALS: BP 156/79; PULSE 64; RESP 17; TEMP 36.3; O2SAT 96
[2019-06-29] MEDS: hydroCHLOROthiazide 25 MG Tablet PO (08:07)
[2019-06-29] MEDS: Enoxaparin 100 MG/ML Syringe 90 MG SC (08:08)
[2019-06-29] MEDS: 0.9% Saline Lock 10 ML Syringe IV (08:10)
--- NOTE | 2019-06-29 10:21 | RAD_ITS ---
STUDY: X-RAY CHEST REASON FOR EXAM: Female, 74 years old. B/L INFILTRATES TECHNIQUE: Single AP portable view of the chest. COMPARISON: Comparison is made with prior study of June 27, 2019. FINDINGS: Since prior study, there has been improved aeration of both lungs. Minimal changes persist at the left lung base with blunting of the left costophrenic angle. There is moderate cardiac enlargement. Normal mediastinum and michael. Normal visualized pulmonary arteries. There is atherosclerotic tortuosity of the aortic arch and descending thoracic aorta. There are diffuse degenerative changes of the visualized thoracic spine. Normal visualized ribs, clavicles, and shoulders. There is no demonstrated abnormality of the visualized soft tissue structures of the upper abdomen. RAD/Chest 1 View (Portable) IMPRESSION: Improved aeration of both lungs. Minimal residual changes persist at the left lung base. Electronically Signed: Alessio Ariza, at 12:42 EDT , Service support ,
--- NOTE | 2019-06-29 10:57 | PCM.DC ---
- Discharge Diagnoses Current Active Problems: Current Active and Chronic Problems (Last Updated 04/15/17 @ 12:[address] Theresa Kahn MD) Fever and chills (Acute) Diarrhea (Acute) Abdominal cramping (Acute) You will use the following diet at home:: Regular Your food should be the consistency of: Regular Discharge Activity: Return to Normal Activity Call your doctor if you observe: Fever of 101 or Higher, Numbness or Tingling, Inability to urinate, Inability to have a bowel movement, Using more than one pad per hour, Shortness of breath, Dizziness, Fainting spells, Chest pain, Prolonged hiccoughing, Increased palpitations (irregular heartbeat), Calf discomfort, Uncontrolled pain Allergies/Adverse Reactions: Allergies amoxicillin Allergy (Mild, Verified 06/27/19 19:39) Hives Medications to take at Discharge hydrochlorothiazide 25 mg tablet 25 mg PO QAM 04/15/17 Aspirin, Baby 81 mg PO QHS 06/27/19 Vitamin D3 25 mg PO DAILY 06/27/19 Ciprofloxacin [Cipro] 500 mg PO BID #6 tab 06/29/19 The following prescriptions were given: Ciprofloxacin [Cipro] 500 mg PO BID #6 tab Transmission Status: Pending to [facility]/pharmacy #[id number] Primary Care Physician: Dell Mcmahon MD [Primary Care Provider] - Please follow up with your Primary Care Physician in: in 2 weeks Test Results: Test results from this visit will be discussed in further detail at your follow-up appointment, if applicable.
--- NOTE | 2019-06-29 10:58 | DS.PCM_ITS ---
Discharge Date and Diagnosis Date of Admission: 06/27/19 Date of Discharge: 06/29/19 - Primary Discharge Diagnosis Active and Suspected Problems (Last Updated 04/15/17 @ 12:[address] Theresa Kahn MD) Fever and chills (Acute) Diarrhea (Acute) Abdominal cramping (Acute) - Secondary Discharge Diagnosis Chronic Problems (Last Updated 04/15/17 @ 12:[address] Theresa Kahn MD) Psoriasis (Chronic) failed clobetasol on vulva- ordered calcipotriene Hospital Course and Treatment Imaging Results: 06/29/19 10:21 Chest 1 View (Portable) [RAD] Urgent Summary of Care Provided: The patient is a 74 year old F [] - Physical Exam Vitals/I&O's: Vital Signs Temp Pulse Resp BP Pulse Ox 97.4 F L 64 17 156/79 H 96 06/29/19 08:05 06/29/19 08:05 06/29/19 08:05 06/29/19 08:05 06/29/19 08:05 Oxygen Delivery Method Room Air Weight: 197 lb 5.019 oz Body Mass Index (BMI) 32.8 Intake and Output for Last 24 Hours 06/27/19 06/28/19 06/29/19 23:59 23:59 23:59 Intake Total 2650.00 / 2650.00 3996.66 / 3996.66 Output Total 1200 / 1200 Balance 2650.00 / 2650.00 2796.66 / 2796.66 Microbiology Past 72 Hours 06/27/19 20:55 Urine, Clean Catch Urine Culture - Final Mixed Gram Pos & Gram Neg Org 06/27/19 23:54 Mucosa - Nasopharyngeal Respiratory Panel (PCR) - Final 06/27/19 23:30 Urine, Clean Catch Legionella Antigen - Final 06/27/19 23:30 Urine, Clean Catch Streptococcus pneumoniae Antigen (M - Final Laboratory Results 06/27/19 21:25: COVID-19 (TREVOR) Not Detected 06/28/19 07:20: Magnesium 1.8, Ferritin 440 H, Lactate Dehydrogenase 342 H, C- React Prot Ext Range 115.00 H 06/28/19 07:20: D-Dimer Quant (PE/DVT) 1.95 H* 06/28/19 14:25: Procalcitonin 2.10 H 06/29/19 06:32: WBC 5.7, RBC 4.15 L, Hgb 12.6, Hct 38.9, MCV 93.7, MCH 30.4, MCHC 32.4, RDW Std Deviation 44.3 H, RDW Coeff of Tami 12.9, Plt Count 205, MPV 9.0, Immature Gran % (Auto) 0.500, Neut % (Auto) 60.0, Lymph % (Auto) 23.7, [place] % (Auto) 8.2, Eos % (Auto) 7.3 H, Baso % (Auto) 0.3, Absolute Neuts (auto) 3.4, Absolute Lymphs (auto) 1.36, Nucleated RBC % 0 06/29/19 06:32: Sodium 139, Potassium 3.9, Chloride 105, Carbon Dioxide 28.0, Anion Gap 6, BUN 11, Creatinine 0.91, Estim Creat Clear Calc 48.25, Est GFR (MDRD) Af Amer 78, Est GFR (MDRD) Non-Af 64, BUN/Creatinine Ratio 12.1, Glucose 102, Calcium 9.3, Magnesium 2.0, Total Bilirubin 0.40, AST 110 H, ALT 200 H, Alkaline Phosphatase 157 H, Total Protein 7.2, Albumin 3.1 L, Globulin 4.1, Albumin/Globulin Ratio 0.8 L Current Medications Acetaminophen (Tylenol) 650 mg PO Q6H PRN PRN PRN Reason: Pain Score 1-10/10 Last Admin: 06/28/19 21:24 Dose: 650 mg Documented by: Enoxaparin Sodium (Lovenox) 90 mg SC BID [facility] Last Admin: 06/29/19 08:08 Dose: 90 mg Documented by: Hydrochlorothiazide (Hctz) 25 mg PO QAM [facility] Last Admin: 06/29/19 08:07 Dose: 25 mg Documented by: Levofloxacin (Levaquin Iv) 750 mg in 150 mls @ 100 mls/hr IV Q48@2200 [facility] Sodium Chloride () 250 mls @ 15 mls/hr IV .[id number] PRN PRN Reason: Saline Flush Sodium Chloride () 250 mls @ 15 mls/hr IV .[id number] PRN PRN Reason: Additional IVPB Infusion Morphine Sulfate () 2 mg IV Q3H PRN PRN PRN Reason: Pain Score 6-10/10 Ondansetron HCl (Zofran) 4 mg IV Q8H PRN PRN PRN Reason: NAUSEA/VOMITING Sodium Chloride () 10 - 40 ml IV UD PRN PRN Reason: SALINE FLUSH Last Admin: 06/29/19 08:10 Dose: 10 ml Documented by: Discharge Activity: Return to Normal Activity Call your doctor if you observe: Fever of 101 or Higher, Numbness or Tingling, Inability to urinate, Inability to have a bowel movement, Using more than one pad per hour, Shortness of breath, Dizziness, Fainting spells, Chest pain, Prolonged hiccoughing, Increased palpitations (irregular heartbeat), Calf discomfort, Uncontrolled pain Home Medications: Medications to take at Discharge hydrochlorothiazide 25 mg tablet 25 mg PO QAM 04/15/17 Aspirin, Baby 81 mg PO QHS 06/27/19 Vitamin D3 25 mg PO DAILY 06/27/19 Ciprofloxacin [Cipro] 500 mg PO BID #6 tab 06/29/19 Following Prescrptions Were Given to Patient: Ciprofloxacin [Cipro] 500 mg PO BID #6 tab Transmission Status: Received by [facility]/pharmacy #[id number] Primary Care Physician: Dell Mcmahon MD [Primary Care Provider] - Please follow up with your Primary Care Physician in: in 2 weeks Medical Necessity - Tobacco Use Smoking Status: Never smoker Tobacco Use: Non-smoker Meaningful Use Info Meaningful Use Diagnoses (Choose all that apply): None applicable Inpatient E&M: 14765 Disch Hosp
--- NOTE | 2019-06-30 12:03 | CASEMGMT ---
ANITA CAMERON Discharge Follow-Up Phone Call. Lacgabriel: 5 Strata: 1 Discharge Date: 06/29/19 Adm Dx: Severe Sepsis, Bilat Pneumonia Call to pt to inquire about how she has been doing since being discharged from the hospital. Pt states she has been doing well, just tired. Pt advised to get plenty of rest and to take it easy, as it takes time to recover and rest is needed for healing/recovery. Pt states that's what my daughter's told me today too. She states she was able to get the Cipro yesterday and has been taking that as prescribed and not having any difficulty with it, stating, so far it's agreeing with me. She states she has not made an appt with PCP yet, but plans to do so today. Pt inquired if they will want to see her in the office or not with the pandemic. Pt made aware that the PCP's office will let her know when she calls if they want to see her in the office or if they will just want to do a phone appt. Pt voices understanding. Pt states her daughters recommended she take a probiotic while on the antibiotic and inquired of ANITA CAMERON if this was okay. Pt informed that probiotic is okay to take, but advised she call her pharmacy to talk with a pharmacist to inquire what the guidelines/recommendations are re: how far apart to take it with the antibiotic/other meds. Pt voices understanding. She denies having any other questions/concerns re: discharge instructions. ANITA CAMERON thanked pt for taking the time for talking with ANITA CAMERON today and for choosing [facility]. Pt states I had really good care when I was there. Danielle MCGHEE RN, CM
== END 2019-06-29 13:55 | disposition home or self-care (01) | DRG 193 ==
LOC: ED 21:47 → MS2 06-28
PROVIDERS: Admitting Provider Internal Medicine; Emergency Provider Emergency Medicine; PCP Family Medicine; Referring Provider Internal Medicine; Visit Provider Internal Medicine
DX: J18.9 Pneumonia, unspecified organism (principal); R65.20 Severe sepsis without septic shock; N39.0 Urinary tract infection, site not specified; K52.1 Toxic gastroenteritis and colitis; E87.6 Hypokalemia; T36.95XA Adverse effect of unspecified systemic antibiotic, initial encounter; Y92.9 Unspecified place or not applicable; I10 Essential (primary) hypertension; L40.9 Psoriasis, unspecified; Z79.899 Other long term (current) drug therapy
CPT/HCPCS: 36415; 71045; 74177; 80048; 80053; 81001; 82728; 83605; 83615; 83690; 83735; 84145; 84484; 85025; 85379; 86140; 87040; 87086; 87088; 87449; 87633; 87635; 93005; 96361; 96365; 96375; 99284; G2023; J7030; J7040; J7050; Q9967; A4216; J2405; U0004

== ENCOUNTER 2021-03-31 09:02 | Emergency (ER) | payer MEDICARE, OTHER, SELFPAY ==
[2021-03-31 09:03] VITALS: BP 149/78; PULSE 126; RESP 17; TEMP 36.6; O2SAT 96; BMI 31.6
--- NOTE | 2021-03-31 10:07 | EX.ED.DYSGE1 ---
HPI History of Present Illness Chief Complaint: Nausea/Vomiting Informant: patient Onset/Context/Timing Onset: Weeks Context: Gradual Onset Current Severity: Moderate Maximum Severity: Moderate Narrative Narrative: Patient present secondary to nausea and vomiting along with cough and abdominal pain. Patient states she was seen on March 16 at urgent care and diagnosed with a UTI. She is given a prescription for Macrobid. After 3 days of the medication she developed vomiting and headache. She states that she sent a message to the physician but was told to continue the medication. Anytime she takes the medicine she gets nauseated and vomits. Today she developed pain in the mid to right upper quadrant of her abdomen. She reports having chills but no fever. She has had some diarrhea. She also reports having cough for the past several months. [facility] Medical History Hypertension Lichen sclerosus Home Medications hydrochlorothiazide 25 mg tablet 25 mg PO QAM 04/15/17 [History Last Taken 06/27/19 06:00] Aspirin, Baby 81 mg PO QHS 06/27/19 [History Last Taken 06/26/19 21:00] Vitamin D3 25 mg PO DAILY 06/27/19 [History Last Taken 06/27/19 06:00] ciprofloxacin HCl 500 mg PO BID #6 tab 06/29/19 [Rx Last Taken Unknown] ondansetron 4 mg PO Q8H PRN #10 tab 03/31/21 [Rx Last Taken Unknown] Allergy/AdvReac Type Severity Reaction Status Date / Time amoxicillin Allergy Mild Hives Verified 03/31/21 09:03 Family History Father Cancer Mother Myocardial infarction Surgical History No history of previous surgery Social History household members: spouse number of children: 1 current occupational status: retired Smoking Status: Never smoker second hand exposure: No alcohol intake: never seatbelt use: always do you feel safe at home: Yes additional social history: [place]- ROS ROS ED Constitutional Constitutional ED: Reports chills; Denies fever(s) Eyes Eyes: Denies change in vision ENT ENT ED: Denies sore throat Cardiovascular Cardiovascular: Denies chest pain Respiratory/Chest Respiratory/Chest: Reports cough; Denies dyspnea Gastrointestinal Gastrointestinal: Reports abdominal pain, diarrhea, nausea and vomiting Genitourinary Genitourinary ED: Denies dysuria Musculoskeletal Musculoskeletal: Denies back pain Integumentary Denies rash Neurologic Neurologic: Reports headache(s) and weakness Allergic/Immunologic Allergic/Immunologic ED: Denies urticaria EXAM Physical Exam Const Vital Signs: 03/31/21 09:03 03/31/21 11:44 03/31/21 13:25 Temperature 97.8 F 97.6 F L Temperature Source Temporal Oral Pulse Rate 126 H 91 82 Respiratory Rate 17 17 16 Blood Pressure 149/78 H 132/77 H 138/79 H Blood Pressure Mean 101 95 98 Pulse Ox 96 98 96 Oxygen Delivery Method Room Air Room Air Positive well nourished and well developed General Appearance ED: well developed HEENT Reports moist mucous membranes Eyes PERRL and EOMs intact bilaterally Neck supple Chest Wall inspection of chest normal and palpation of chest normal Resp normal respiratory effort and clear to auscultation bilaterally Cardio Rate: tachycardic GI non-tender Auscultation: hypoactive bowel sounds Palpation: soft Extremity normal to inspection Neuro oriented x3 Sensorium / Orientation: alert Psych mental status grossly normal Skin no rashes or lesions noted MDM MDM MDM Narrative Medical decision making narrative: Patient was given IV fluids and Zofran. Lab work and urinalysis obtained. Lab Data Attestation: I reviewed the patient's lab results. Labs: Laboratory Results - last 24 hr 03/31/21 03/31/21 03/31/21 10:00 10:15 10:15 WBC 28.7 H RBC 4.38 Hgb 14.0 Hct 40.6 MCV 92.7 MCH 32.0 MCHC 34.5 RDW Std Deviation 42.2 RDW Coeff of Tami 12.3 Plt Count 297 MPV 8.5 Immature Gran % (Auto) 1.900 H Neut % (Auto) 95.1 H Lymph % (Auto) 1.1 L [place] % (Auto) 1.7 Eos % (Auto) 0.0 Baso % (Auto) 0.2 Absolute Neuts (auto) 27.3 H Absolute Lymphs (auto) 0.33 L Nucleated RBC % 0 Sodium 135 L Potassium 3.4 L Chloride 101 Carbon Dioxide 25.0 Anion Gap 9 BUN 16 Creatinine 0.88 Estim Creat Clear Calc 50.47 Est GFR (MDRD) Af Amer 81 Est GFR (MDRD) Non-Af 67 BUN/Creatinine Ratio 18.2 Glucose 158 H Calcium 9.1 Total Bilirubin 0.50 Direct Bilirubin 0.19 AST 17 ALT 50 Alkaline Phosphatase 128 H Total Protein 7.5 Albumin 3.3 Globulin 4.2 Lipase 51 L Urine Color Yellow Urine Clarity Clear Urine pH 7.0 Ur Specific [place] 1.005 Urine Protein 15 H Urine Glucose (UA) Normal Urine Ketones 5 H Urine Occult Blood Negative Urine Nitrite Negative Urine Bilirubin Negative Urine Urobilinogen Normal Ur Leukocyte Esterase 25 H Urine RBC 0 SEEN Urine WBC 0-5 SEEN Ur Squamous Epith Cells 0-5 SEEN Urine Bacteria 0 SEEN Urine Mucus 0 SEEN Radiography Diagnostic Testing: Clinical Impression(s) from Imaging Studies Chest X-Ray 03/31/21 10:31 IMPRESSION: Normal x-ray examination of the chest. Electronically Signed: Tevin Soriano MD at 10:40 EST Reading Location ID and State: [email or web address] / [email or web address] , Service support , Abdomen/Pelvis CT 03/31/21 11:15 IMPRESSION: Sigmoid diverticulosis without diverticulitis. Electronically Signed: Tevin Soriano MD at 13:55 EST Reading Location ID and State: [id number] / [email or web address] , Service support , Treatment and Re-Evaluation Comments:: Repeat evaluation patient is feeling improved. Blood work is reviewed and reveals a significant leukocytosis with a white count of 28.7. Chemistry studies remarkable only for mildly low potassium at 3.4. LFTs and lipase unremarkable. Urinalysis shows no sign of acute infection. Chest x-ray is unremarkable. CT scan of the abdomen and pelvis with contrast is obtained and reveals sigmoid diverticulosis without diverticulitis. Stool studies were ordered but patient has not had diarrhea while in the emergency room. On repeat evaluation she feels improved. She does still complain of mild pain in the right upper quadrant. On review of the imaging she does have quite a bit of stool around the hepatic flexure. Patient will be sent home with collection kit for stool studies that she can drop off for further testing. With that significant elevation in white count C. difficile is on my differential, however they do not see significant signs of colitis on imaging. I did speak with Dr. Salazar, on-call for Dr. Mcmahon. They will be sure to follow-up with the patient this week for repeat labs and exam. Return instructions are provided. Discharge Plan Triage Chief Complaint: Nausea/Vomiting ED Provider: Carolina Sweet Dx/Rx/DC Orders Clinical Impression: Abdominal pain, Leukocytosis Instructions: ED Abdominal Pain Unkn Cause Fem Prescriptions: New ondansetron 4 mg tablet,disintegrating 4 mg PO Q8H PRN (Reason: nausea and vomiting) Qty: 10 RF: 0 No Action hydrochlorothiazide 25 mg tablet 25 mg PO QAM RF: 0 Aspirin, Baby 81 mg PO QHS RF: 0 Vitamin D3 25 mg PO DAILY RF: 0 ciprofloxacin HCl 500 MG tablet 500 mg PO BID Qty: 6 RF: 0 Primary Care Provider: Dell Mcmahon Referrals: Dell Mcmahon MD [Primary Care Provider] - 3-5 Days Disposition Disposition: Home, Self Care
[2021-03-31 10:22] LABS: Bacteria 0 SEEN /hpf (None Seen); Mucous, Urine 0 SEEN /hpf (<or=2+); Red Blood Cells-Urine 0 SEEN /hpf (0-5)
[2021-03-31] MEDS: Ondansetron 4 MG/2 ML Vial IV (10:22)
[2021-03-31] MEDS: 0.9% Normal Saline 1,000 ML 1000 ML IV (10:22)
[2021-03-31 10:24] LABS: Absolute Lymphocyte Count 0.33 X10^3/uL (0.83-4.51); Absolute Neutrophil Count 27.3 X10^3/uL (2.0-7.7); Basophil# 0.05 X10^3/uL; Basophil% 0.2 % (0-1); Eosinophil# 0.01 X10^3/uL; Hematocrit 40.6 % (37-47); Lymphocyte # 0.33 X10^3/ul (0.83-4.51); Lymphocyte % 1.1 % (19-41); Mean Corp Hgb Conc 34.5 g/dL (32-36); Mean Corpuscular Volume 92.7 fL (81-99); Mean Platelet Vol. 8.5 fl (6.2-12.0); Monocyte# 0.48 X10^3/uL; Monocyte% 1.7 % (0-10); NRBC Flagged by Analyzer 0 % (0-5); Neutrophil # 27.31 X10^3/uL (2.7-7.7); Neutrophil % 95.1 % (47-70); POSITIVE DIFFERENTIAL YES; Platelet Count 297 K/mm3 (150-450); RBC Distribution Width CV 12.3 % (11.6-14.6); RBC Distribution Width SD 42.2 fl (35.1-43.9); Red Blood Count 4.38 M/mm3 (4.2-5.4); White Blood Count 28.7 K/mm3 (4.4-11.0)
[2021-03-31 10:25] LABS: Color, Urine Yellow (Yellow); Glucose, Dipstick Normal (Normal); Ketone-Dipstick 5 mg/dl (Negative); Leukocyte Esterase-Dipstick 25 /ul (Negative); Nitrite-Dipstick Negative (Negative); Occult Blood-Urine Negative /ul (Negative); Protein-Dipstick 15 mg/dl (Negative); Specific Gravity, Urine 1.005 (1.002-1.030); Urine Bilirubin Dipstick Negative (Negative); Urine Clarity Clear (Clear); Urine Urobilinogen Normal (Normal)
[2021-03-31 10:25] LABS: Differential Indicated SCAN CRITERIA MET
[2021-03-31 10:31] LABS: Squamous Epithelial Cells - UA 0-5 SEEN /hpf (5-10); White Blood Cells 0-5 SEEN /hpf (0-5)
--- NOTE | 2021-03-31 10:31 | RAD_ITS ---
STUDY: X-RAY CHEST REASON FOR EXAM: Female, 76 years old. cough TECHNIQUE: Single AP portable view of the chest. COMPARISON: None. FINDINGS: The lungs are clear and expanded. There is no demonstrated pleural abnormality. Normal size heart. Normal mediastinum and michael. Normal visualized pulmonary arteries. Normal visualized aortic arch and descending thoracic aorta. Normal visualized thoracic spine. Normal visualized ribs, clavicles, and shoulders. There is no demonstrated abnormality of the visualized soft tissue structures of the upper abdomen. RAD/Chest 1 View (Portable) IMPRESSION: Normal x-ray examination of the chest. Electronically Signed: Tevin Soriano MD at 10:40 EST ,
[2021-03-31 10:40] LABS: AST(SGOT) 17 U/L (15-37); Alanine Aminotransfer ALT/SGPT 50 U/L (13-56); Albumin, Serum 3.3 g/dL (3.2-5.0); Alkaline Phosphatase 128 U/L (45-117); Anion Gap 9 (5-15); BUN 16 mg/dL (7-18); BUN/Creat Ratio 18.2 RATIO (10-20); Bilirubin, Direct 0.19 mg/dL (0.00-0.30); Calcium,Total 9.1 mg/dL (8.5-10.1); Chloride 101 mmol/L (98-107); Creatinine, Serum 0.88 mg/dL (0.55-1.02); EST Glomerular Filtration Rate 67 mL/min (>60); Est Glom Filt Rate - Afr Amer 81 mL/min (>60); Estimated Creatinine Clearance 50.47 ml/min; Globulin 4.2 g/dL (2.2-4.2); Glucose 158 mg/dL (74-106); Lipase 51 U/L (73-393); Potassium 3.4 mmol/L (3.5-5.1); Protein, Total 7.5 g/dL (6.4-8.2); Sodium Level 135 mmol/L (136-145)
--- NOTE | 2021-03-31 11:15 | CT_ITS ---
STUDY: CT ABDOMEN AND PELVIS WITH CONTRAST REASON FOR EXAM: Female, 76 years old. abd pain -- IV PO Contrast RADIATION DOSAGE (If Supplied By Facility): CTDIvol = ( 17.40 ) mGy, DLP = ( 1196.83 ) mGycm TECHNIQUE: Transaxial images were obtained from the dome of the diaphragm to the symphysis pubis without oral contrast. Oral and amp; IV Gastrografin and amp; 100mL Isovue-370 was administered. Sagittal and coronal images were reconstructed. Individualized dose optimization techniques were used for this CT. COMPARISON: None. FINDINGS: Some dependent bibasilar atelectasis. The visualized portions of the heart are within normal limits. Normal liver. Normal gallbladder and extrahepatic biliary system. Normal spleen. Normal pancreas. Normal bilateral adrenal glands. Normal right kidney. Normal left kidney. There is a small hiatal hernia. Normal small intestine. There are multiple colonic diverticula consistent with diverticulosis. The appendix is visualized and appears normal. Normal abdominal aorta. Normal inferior vena cava. Normal retroperitoneum. Normal urinary bladder. Normal abdominal wall. There are diffuse degenerative changes of the visualized lumbar spine. CT/Abdomen/Pelvis WITH Contrast IMPRESSION: Sigmoid diverticulosis without diverticulitis. Electronically Signed: Tevin Soriano MD at 13:55 EST ,
[2021-03-31 11:44] VITALS: BP 132/77; PULSE 91; RESP 17; TEMP 36.4; O2SAT 98
[2021-03-31] MEDS: 0.9% Normal Saline 1,000 ML 150 ML IV (11:49)
[2021-03-31 13:25] VITALS: BP 138/79; PULSE 82; RESP 16; O2SAT 96
[2021-03-31 14:19] VITALS: BP 129/88; PULSE 72; RESP 16; O2SAT 98
== END 2021-03-31 14:20 | disposition home or self-care (01) ==
PROVIDERS: Emergency Provider Emergency Medicine; PCP Family Medicine; Visit Provider Emergency Medicine
DX: R10.9 Unspecified abdominal pain (principal); R11.2 Nausea with vomiting, unspecified; I10 Essential (primary) hypertension; R19.7 Diarrhea, unspecified; R51.9 Headache, unspecified; Z79.899 Other long term (current) drug therapy; Z79.82 Long term (current) use of aspirin; R05.9 Cough, unspecified; Z87.440 Personal history of urinary (tract) infections
CPT/HCPCS: 71045; 74177; 80048; 80076; 81001; 83690; 85025; 87040; 87086; 96361; 96374; 99283; J7030; Q9967; A4216; J2405

== ENCOUNTER 2023-01-23 11:10 | Emergency (ER) | payer MEDICARE, OTHER, SELFPAY ==
[2023-01-23 11:11] VITALS: BP 156/80; PULSE 77; RESP 16; TEMP 37.2; O2SAT 97; BMI 35.2
--- NOTE | 2023-01-23 11:53 | EX.ED.DYSGE1 ---
HPI History of Present Illness Chief Complaint: Flank Pain Informant: patient Onset/Context/Timing Onset: Weeks (2) Context: Gradual Onset Timing: Continuous Quality: Aching Location: Lumbar Worsened by: Movement Relieved by: Ibuprofen, Biofreeze Narrative Narrative: Patient presents with back and flank pain that has been getting worse over the past 2 weeks. Patient states it is gradually getting worse. Patient describes it as aching. Patient states it is over the lower lumbar area and radiates to the bilateral flank areas. Patient states it is worse with movement. Patient states she has been using ibuprofen and Biofreeze which helps somewhat. Patient states the relief does not last very long however. Patient denies any dysuria or hematuria. Patient denies any urinary frequency. Patient denies any nausea or vomiting. Patient denies any diarrhea, melena, or hematochezia. Patient denies any radiation of pain to her lower extremities. Patient denies any bowel or bladder changes. Patient denies any saddle anesthesia. [facility] Medical History Hypertension Lichen sclerosus Home Medications hydrochlorothiazide 25 mg tablet 25 mg PO QAM BP 04/15/17 [History Last Taken 06/27/19 06:00] Aspirin, Baby 81 mg PO QHS heart 06/27/19 [History Last Taken 06/26/19 21:00] Vitamin D3 25 mg PO DAILY supplement 06/27/19 [History Last Taken 06/27/19 06:00] ciprofloxacin HCl 500 mg tablet 500 mg PO BID #6 tabs 06/29/19 [Rx Last Taken Unknown] ondansetron 4 mg disintegrating tablet 4 mg PO Q8H PRN nausea and vomiting #10 tabs 03/31/21 [Rx Last Taken Unknown] Allergy/AdvReac Type Severity Reaction Status Date / Time amoxicillin Allergy Mild Hives Verified 01/23/23 11:10 Family History Father Cancer Mother Myocardial infarction Surgical History No history of previous surgery Social History household members: spouse number of children: 1 current occupational status: retired Smoking Status: Never smoker second hand exposure: No alcohol intake: never seatbelt use: always do you feel safe at home: Yes additional social history: [place]- ROS ROS ED Constitutional Constitutional ED: Denies chills or fever(s) Eyes Eyes: Denies blurry vision or change in vision ENT ENT ED: Denies rhinorrhea or sore throat Cardiovascular Cardiovascular: Denies chest pain or palpitations Respiratory/Chest Respiratory/Chest: Denies cough or dyspnea Gastrointestinal Gastrointestinal: Reports abdominal pain; Denies nausea or vomiting Genitourinary Genitourinary ED: Denies dysuria or hematuria Musculoskeletal Musculoskeletal: Reports back pain; Denies neck pain Integumentary Denies abscess or rash Neurologic Neurologic: Denies headache(s) or weakness Allergic/Immunologic Allergic/Immunologic ED: Denies mouth swelling or urticaria EXAM Physical Exam Const Vital Signs: 01/23/23 11:11 Temperature 99 F Temperature Source Temporal Pulse Rate 77 Respiratory Rate 16 Blood Pressure 156/80 H Blood Pressure Mean 105 Pulse Ox 97 Oxygen Delivery Method Room Air Positive well nourished, well developed and obese General Appearance ED: well developed and NAD Nutritional Appearance: obese HEENT Reports moist mucous membranes Neck supple and no JVD Resp normal respiratory effort and clear to auscultation bilaterally Cardio regular rate and regular rhythm GI non-tender and non-distended Palpation: soft Back/Spine Back/Spine Narrative: There is tenderness over the lumbar paraspinal muscles bilaterally. There is no midline tenderness. There is no bony crepitance or step-off. Range of motion was slightly limited in all motions of the lumbar spine secondary to pain. Strength is 5/5 bilaterally in lower extremities. There are no sensory deficits noted. Deep tendon reflexes are 2/4 bilaterally in the lower extremities. General Back: CVA tenderness bilateral Extremity normal to inspection General Extremety ED: Negative for edema or tenderness General Extremity: Negative for edema Neuro oriented x3, CN's II-XII intact bilaterally and no sensory deficits noted Sensorium / Orientation: alert Motor Exam: strength 5/5 throughout Psych mental status grossly normal MDM MDM MDM Narrative Medical decision making narrative: Differential diagnosis includes lumbosacral strain, pyelonephritis, ureteral calculus, and acute kidney injury. CBC will be obtained to assess for leukocytosis and anemia. Basic metabolic profile will be obtained to assess for electrolyte abnormality and renal function. Urinalysis will be obtained to assess for urinary tract infection and hematuria. CT scan of the abdomen pelvis will be obtained to assess for ureteral calculus and pyelonephritis. Lab Data Attestation: I reviewed the patient's lab results. Lab results narrative: CBC was reviewed and was within normal limits. Basic metabolic profile was reviewed and was essentially within normal limits. Urinalysis was reviewed. There is no evidence of urinary tract infection or hematuria. Labs: Laboratory Results - last 24 hr 01/23/23 01/23/23 11:19 12:06 WBC 8.1 RBC 4.18 L Hgb 13.0 Hct 39.9 MCV 95.5 MCH 31.1 MCHC 32.6 RDW Std Deviation 44.3 H RDW Coeff of Tami 12.7 Plt Count 267 MPV 8.7 Immature Gran % (Auto) 0.700 Neut % (Auto) 72.1 H Lymph % (Auto) 17.1 L [place] % (Auto) 7.9 Eos % (Auto) 1.7 Baso % (Auto) 0.5 Absolute Neuts (auto) 5.9 Absolute Lymphs (auto) 1.39 Nucleated RBC % 0 Sodium 137 Potassium 3.8 Chloride 102 Carbon Dioxide 31.0 Anion Gap 4 L BUN 22 H Creatinine 0.83 Estim Creat Clear Calc 50.57 Est GFR (MDRD) Af Amer 86 Est GFR (MDRD) Non-Af 71 BUN/Creatinine Ratio 26.5 H Glucose 109 H Calcium 9.3 Urine Color Yellow Urine Clarity Clear Urine pH 7.0 Ur Specific [place] 1.010 Urine Protein Negative Urine Glucose (UA) Normal Urine Ketones Negative Urine Occult Blood Negative Urine Nitrite Negative Urine Bilirubin Negative Urine Urobilinogen Normal Ur Leukocyte Esterase Negative Urine RBC 0 SEEN Urine WBC 0 SEEN Ur Squamous Epith Cells 0 SEEN Urine Bacteria 0 SEEN Urine Mucus 0 SEEN Radiography Diagnostic Testing: Clinical Impression(s) from Imaging Studies Abdomen/Pelvis CT 01/23/23 11:59 IMPRESSION: Mild degree of bibasilar atelectasis. Sigmoid diverticulosis. Electronically Signed: Alessio Ariza MD at 12:33 EST , CT scan of the abdomen and pelvis was obtained. There is mild degree of bibasilar atelectasis. There is diverticulosis but no evidence of diverticulitis. There is no free air or free fluid. This was interpreted by the radiologist and was also independently reviewed by myself. Treatment and Re-Evaluation :: Patient was given IV fluids. Patient was advised of her findings. Patient is feeling better on reevaluation. Patient was instructed to drink plenty of fluids. Patient was instructed to take Tylenol as needed for pain. Patient was instructed to follow-up with her primary care physician in 5 to 7 days. Patient understood and was agreeable with the plan. All questions were answered. Discharge Plan Triage Chief Complaint: Flank Pain ED Provider: Bradley Guevara Dx/Rx/DC Orders Clinical Impression: Acute low back pain, Acute lumbosacral myofascial strain Instructions: ED Back Sprain/Strain Prescriptions: No Action hydrochlorothiazide 25 mg tablet 25 mg PO QAM Aspirin, Baby 81 mg PO QHS Vitamin D3 25 mg PO DAILY ciprofloxacin HCl 500 MG tablet 500 mg PO BID Qty: 6 0RF ondansetron 4 mg tablet,disintegrating 4 mg PO Q8H PRN (Reason: nausea and vomiting) Qty: 10 0RF Primary Care Provider: Dell Mcmahon Referrals: Dell Mcmahon MD [Primary Care Provider] - 3-5 Days Disposition Disposition: Home, Self Care
--- NOTE | 2023-01-23 11:59 | CT_ITS ---
STUDY: CT ABDOMEN AND PELVIS WITHOUT CONTRAST REASON FOR EXAM: Female, 77 years old. Right flank pain. Dark-colored urine. RADIATION DOSAGE (If Supplied By Facility): CTDIvol = ( 18.65 ) mGy, DLP = ( 1048.16 ) mGycm TECHNIQUE: Transaxial images were obtained from the dome of the diaphragm to the symphysis pubis without oral contrast, and without intravenous contrast. Sagittal and coronal images were reconstructed. Individualized dose optimization techniques were used for this CT. COMPARISON: Comparison is made with prior study dated March 31, 2021. FINDINGS: Mild increased markings at the lung bases suggestive of bibasilar atelectasis. Coronary artery calcification. Normal liver. Normal gallbladder and extrahepatic biliary system. Normal spleen. Normal pancreas. Normal bilateral adrenal glands. Normal right kidney. Normal left kidney. Normal visualized stomach. Normal small intestine. There are multiple colonic diverticula consistent with diverticulosis. The appendix is visualized and appears normal. There is scattered atherosclerotic calcification of the abdominal aorta, without a demonstrated aneurysm. Normal inferior vena cava. There is a small retroperitoneal lymphadenopathy with enlarged nodes no greater than 10mm in the short axis diameter. Normal urinary bladder. Normal abdominal wall. There are degenerative changes of the visualized lumbar spine. CT/Abdomen/Pelvis without Cont IMPRESSION: Mild degree of bibasilar atelectasis. Sigmoid diverticulosis. Electronically Signed: Alessio Ariza MD at 12:33 EST ,
[2023-01-23 12:05] LABS: Bacteria 0 SEEN /hpf (None Seen); Mucous, Urine 0 SEEN /hpf (<or=2+); Red Blood Cells-Urine 0 SEEN /hpf (0-5); Squamous Epithelial Cells - UA 0 SEEN /hpf (5-10); White Blood Cells 0 SEEN /hpf (0-5)
[2023-01-23] MEDS: 0.9% Normal Saline (1000mL) 1,000 ML 1000 ML IV (12:08)
[2023-01-23 12:11] LABS: Color, Urine Yellow (Yellow); Glucose, Dipstick Normal (Normal); Ketone-Dipstick Negative (Negative); Leukocyte Esterase-Dipstick Negative /ul (Negative); Nitrite-Dipstick Negative (Negative); Occult Blood-Urine Negative /ul (Negative); Protein-Dipstick Negative (Negative); Urine Bilirubin Dipstick Negative (Negative); Urine Clarity Clear (Clear); Urine Urobilinogen Normal (Normal)
[2023-01-23 12:11] LABS: Absolute Lymphocyte Count 1.39 X10^3/uL (0.83-4.51); Absolute Neutrophil Count 5.9 X10^3/uL (2.0-7.7); Basophil# 0.04 X10^3/uL; Basophil% 0.5 % (0-1); Eosinophil# 0.14 X10^3/uL; Eosinophils% 1.7 % (0-5); Hematocrit 39.9 % (37-47); Lymphocyte # 1.39 X10^3/ul (0.83-4.51); Lymphocyte % 17.1 % (19-41); Mean Corp Hgb Conc 32.6 g/dL (32-36); Mean Corpuscular Hgb 31.1 pg (27.0-32.0); Mean Corpuscular Volume 95.5 fL (81-99); Mean Platelet Vol. 8.7 fl (6.2-12.0); Monocyte# 0.64 X10^3/uL; Monocyte% 7.9 % (0-10); NRBC Flagged by Analyzer 0 % (0-5); Neutrophil # 5.86 X10^3/uL (2.7-7.7); Neutrophil % 72.1 % (47-70); Platelet Count 267 K/mm3 (150-450); RBC Distribution Width CV 12.7 % (11.6-14.6); RBC Distribution Width SD 44.3 fl (35.1-43.9); Red Blood Count 4.18 M/mm3 (4.2-5.4); White Blood Count 8.1 K/mm3 (4.4-11.0)
[2023-01-23 12:26] LABS: Anion Gap 4 (5-15); BUN 22 mg/dL (7-18); BUN/Creat Ratio 26.5 RATIO (10-20); Calcium,Total 9.3 mg/dL (8.5-10.1); Chloride 102 mmol/L (98-107); Creatinine, Serum 0.83 mg/dL (0.55-1.02); EST Glomerular Filtration Rate 71 mL/min (>60); Est Glom Filt Rate - Afr Amer 86 mL/min (>60); Estimated Creatinine Clearance 50.57 ml/min; Glucose 109 mg/dL (74-106); Potassium 3.8 mmol/L (3.5-5.1); Sodium Level 137 mmol/L (136-145)
[2023-01-23 13:02] VITALS: BP 140/72; PULSE 67; RESP 16; O2SAT 99
== END 2023-01-23 13:04 | disposition home or self-care (01) ==
PROVIDERS: Emergency Provider Emergency Medicine; PCP Family Medicine; Visit Provider Emergency Medicine
DX: S39.012A Strain of muscle, fascia and tendon of lower back, initial encounter (principal); I10 Essential (primary) hypertension; Z79.899 Other long term (current) drug therapy; Z79.82 Long term (current) use of aspirin
CPT/HCPCS: 74176; 80048; 81001; 85025; 96360; 99283; J7030; A4216

== ENCOUNTER 2024-08-29 08:48 | Emergency (ER) | payer MEDICARE, OTHER, SELFPAY ==
[2024-08-29 08:49] VITALS: BP 156/78; PULSE 70; RESP 16; TEMP 36.4; O2SAT 98; BMI 34.0
[2024-08-29 10:41] VITALS: BP 142/84; PULSE 76; RESP 16; TEMP 36.6; O2SAT 99
== END 2024-08-29 10:42 | disposition home or self-care (01) ==
LOC: ED 10:18
PROVIDERS: Emergency Provider Surgery; PCP Family Medicine; Visit Provider Surgery
DX: M79.662 Pain in left lower leg (principal); I10 Essential (primary) hypertension; Z79.899 Other long term (current) drug therapy
CPT/HCPCS: 93971; 99282